=== PATIENT | male | born 1950 | race African-American/Black ===

== ENCOUNTER 2018-02-18 12:19 | Inpatient (IN) ==
[2018-02-18 13:46] LABS: Basophils % 0.4 % (0.0-0.8); Eosinophils # 0.1 10*3/uL (0.0-0.87); Eosinophils % 1.1 % (0.00-10.9); Hematocrit 42.2 VOL% (42.0-52.0); Hemoglobin 14.4 GM/DL (14.0-18.0); Immature Granulocytes % 0.4 %; Immature Granulocytes Absolute 0.03 #; Lymphocytes # 2.2 10*3/uL (1.4-4.0); Lymphocytes % 27.1 % (21.2-54.2); Mean Corpuscular HGB Conc 34.1 GM/DL (32-36); Mean Corpuscular Hemoglobin 32 PG (27-34); Mean Corpuscular Volume 94.8 FL (87-102); Mean Platelet Volume 10.4 FL (9.6-12.0); Monocytes # 0.6 10*3/uL (0.11-0.8); Neutrophils # 5.1 10*3/uL (1.4-7.4); Platelet Count 189 T/CUMM (130-400); Red Blood Count 4.45 MC/CUMM (3.8-5.5); Red Cell Distribution Width 11.6 % (9.3-17.3)
[2018-02-18 14:03] LABS: Alanine Aminotransferase 17 U/L (16-61); Albumin 3.5 G/DL (3.4-5.0); Alkaline Phosphatase 82 U/L (45-117); Aspartate Amino Transferase 12 U/L (0-37); Blood Urea Nitrogen 13 MG/DL (7-18); Calcium 8.5 MG/DL (8.5-10.1); Glucose 250 MG/DL (74-106); Osmolality,Calculated 280.8 MOS/KG (273-304); Potassium 3.9 MMOL/L (3.5-5.1); Sodium 137 MMOL/L (136-145); Total Protein 7.1 G/DL (6.4-8.3)
[2018-02-18 14:53] LABS: Apearance,Urine CLEAR (Clear); Bilirubin,Urine Negative (Negative); Blood, Urine Negative (Negative); Glucose,Urine (UA) >=500 mg/dL (Negative); Ketones,Urine Negative (Negative); Mucus,Urine Occasional /LPF (Occasional); Nitrite,Urine Negative (Negative); Protein,Urine Negative; RBC,Urine <1 /HPF (0-4); Squamous Epithelial Cell,Urine Occasional /HPF (0-10); Urine Color Yellow (Yellow); Urine Specific Gravity 1.027 (1.001-1.035); WBC,Urine <1 /HPF (0-6)
[2018-02-18] MEDS ORDERED: DEXTROSE 50% 25 GM/50 ML VIAL IV PRN (15:21)
[2018-02-18] MEDS ORDERED: GLUCAGON 1 MG VIAL IM PRN (15:21)
[2018-02-18 15:22] LABS: Barbiturates Screen,Urine Negative (Negative); Benzodiazepines Screen,Urine Negative (Negative); Cannabinoid Screen,Urine Negative (Negative); Opiate Screen,Urine Negative (Negative); Phencyclidine Screen,Urine Negative (Negative)
[2018-02-18 15:31] LABS: Risk Ratio 4.43; VLDL CHOLESTEROL 38.8 MG/DL
[2018-02-18] MEDS ORDERED: LORazepam 2 MG/1 ML VIAL IV ONE (16:40)
[2018-02-18] MEDS ORDERED: ONDANSETRON 4 MG/2 ML VIAL IV PRN (16:41)
[2018-02-18] MEDS ORDERED: traZODone 50 MG TABLET PO PRN (16:41)
[2018-02-18] MEDS ORDERED: ACETAMINOPHEN 325 MG TABLET PO PRN (16:41)
[2018-02-18] MEDS ORDERED: guaiFENesin/DM ER 600-30 MG TABLET PO PRN (16:41)
[2018-02-18] MEDS: INSULIN REGULAR 100 UNIT/ML SUBCUT SCH ×2 (17:21→20:59)
[2018-02-18] MEDS: FENOFIBRATE 160 MG TABLET PO SCH (17:43)
[2018-02-18] MEDS: GEMFIBROZIL 600 MG TABLET PO SCH (18:25)
[2018-02-18] MEDS: ASPIRIN EC 81 MG TABLET PO SCH (18:25)
[2018-02-18] MEDS: DOCUSATE SODIUM 100 MG CAPSULE PO SCH (20:58)
[2018-02-18] MEDS: INSULIN GLARGINE 100 UNIT/ML SUBCUT SCH (20:59)
[2018-02-19 04:52] LABS: Basophils # 0.1 10*3/uL (0.0-0.2); Basophils % 0.7 % (0.0-0.8); Eosinophils # 0.2 10*3/uL (0.0-0.87); Eosinophils % 1.8 % (0.00-10.9); Hematocrit 41.1 VOL% (42.0-52.0); Hemoglobin 14.2 GM/DL (14.0-18.0); Immature Granulocytes % 0.3 %; Immature Granulocytes Absolute 0.03 #; Lymphocytes % 34.4 % (21.2-54.2); Mean Corpuscular HGB Conc 34.5 GM/DL (32-36); Mean Corpuscular Hemoglobin 32 PG (27-34); Mean Corpuscular Volume 93.6 FL (87-102); Mean Platelet Volume 11.6 FL (9.6-12.0); Monocytes # 0.7 10*3/uL (0.11-0.8); Monocytes % 8.4 % (1.7-12.7); Neutrophils # 4.8 10*3/uL (1.4-7.4); Neutrophils % 54.4 % (38.7-73.9); Platelet Count 204 T/CUMM (130-400); Red Blood Count 4.39 MC/CUMM (3.8-5.5); Red Cell Distribution Width 11.7 % (9.3-17.3); White Blood Count 8.8 T/CUMM (4-12)
[2018-02-19 05:19] LABS: Bilirubin,Total 0.4 MG/DL (0.2-1.0); Calcium 8.5 MG/DL (8.5-10.1); Osmolality,Calculated 281.7 MOS/KG (273-304); Total Protein 6.7 G/DL (6.4-8.3)
[2018-02-19] MEDS ORDERED: OMEGA 3 ACID ETHYL ESTERS 1 GM CAPSULE PO SCH (09:00)
[2018-02-19] MEDS: ATORVASTATIN 80 MG TABLET PO SCH (09:49)
[2018-02-19] MEDS: FENOFIBRATE 160 MG TABLET PO SCH (09:49)
[2018-02-19] MEDS: PANTOPRAZOLE 40 MG TABLET PO SCH (09:49)
[2018-02-19] MEDS: ASPIRIN EC 81 MG TABLET PO SCH (09:49)
[2018-02-19] MEDS: INSULIN REGULAR 100 UNIT/ML SUBCUT SCH ×4 (09:49→21:37)
[2018-02-19] MEDS: DOCUSATE SODIUM 100 MG CAPSULE PO SCH ×2 (09:49→21:36)
[2018-02-19] MEDS: GEMFIBROZIL 600 MG TABLET PO SCH ×2 (09:49→16:55)
[2018-02-19] MEDS: INSULIN GLARGINE 100 UNIT/ML SUBCUT SCH ×2 (09:50→21:37)
[2018-02-19] MEDS: NICOTINE 21 MG/24 HR PATCH TRANSDERM SCH (09:50)
[2018-02-19] MEDS: LIDOCAINE 5% PATCH TRANSDERM SCH (09:50)
[2018-02-19] MEDS ORDERED: SODIUM CHLORIDE 0.9% 1,000 ML IV SCH (11:30)
[2018-02-19] MEDS: ALBUTEROL/IPRATROPIUM 3 ML NEB RESP TX SCH ×2 (13:57→19:05)
[2018-02-20] MEDS: ALBUTEROL/IPRATROPIUM 3 ML NEB RESP TX SCH ×2 (00:24→07:01)
[2018-02-20 03:50] LABS: Basophils % 0.6 % (0.0-0.8); Eosinophils # 0.1 10*3/uL (0.0-0.87); Eosinophils % 1.4 % (0.00-10.9); Immature Granulocytes % 0.3 %; Immature Granulocytes Absolute 0.02 #; Lymphocytes # 2.5 10*3/uL (1.4-4.0); Lymphocytes % 36.4 % (21.2-54.2); Mean Corpuscular HGB Conc 34.1 GM/DL (32-36); Mean Corpuscular Hemoglobin 32 PG (27-34); Mean Corpuscular Volume 93.2 FL (87-102); Mean Platelet Volume 10.4 FL (9.6-12.0); Monocytes # 0.6 10*3/uL (0.11-0.8); Monocytes % 9.2 % (1.7-12.7); Neutrophils # 3.6 10*3/uL (1.4-7.4); Neutrophils % 52.1 % (38.7-73.9); Platelet Count 187 T/CUMM (130-400); Red Cell Distribution Width 11.6 % (9.3-17.3); White Blood Count 6.9 T/CUMM (4-12)
[2018-02-20 04:41] LABS: Albumin 3.3 G/DL (3.4-5.0); Bilirubin,Total 0.8 MG/DL (0.2-1.0); Calcium 8.4 MG/DL (8.5-10.1); Osmolality,Calculated 281.5 MOS/KG (273-304); Potassium 3.7 MMOL/L (3.5-5.1); Total Protein 6.5 G/DL (6.4-8.3)
[2018-02-20] MEDS: LIDOCAINE 5% PATCH TRANSDERM SCH (09:11)
[2018-02-20] MEDS: INSULIN REGULAR 100 UNIT/ML SUBCUT SCH ×2 (09:11→11:18)
[2018-02-20] MEDS: ASPIRIN EC 81 MG TABLET PO SCH (09:12)
[2018-02-20] MEDS: ATORVASTATIN 80 MG TABLET PO SCH (09:12)
[2018-02-20] MEDS: FENOFIBRATE 160 MG TABLET PO SCH (09:12)
[2018-02-20] MEDS: NICOTINE 21 MG/24 HR PATCH TRANSDERM SCH (09:12)
[2018-02-20] MEDS: DOCUSATE SODIUM 100 MG CAPSULE PO SCH (09:12)
[2018-02-20] MEDS: INSULIN GLARGINE 100 UNIT/ML SUBCUT SCH (09:12)
[2018-02-20] MEDS: PANTOPRAZOLE 40 MG TABLET PO SCH (09:12)
[2018-02-20] MEDS: GEMFIBROZIL 600 MG TABLET PO SCH (09:12)
[2018-02-20 12:00] VITALS: BP 113/64
== END 2018-02-20 14:04 | disposition home health service (06) | DRG 66 ==
LOC: N.ED 12:19 → SUATTDRO 15:00 → N.EDINP 15:00 → N.2W 16:25 → N.TELES 18:12
PROVIDERS: ADMIT Internal Medicine; ATTEND Internal Medicine